=== PATIENT | female | born 1960 | race Caucasian/White ===

== ENCOUNTER 2018-06-04 12:26 | Inpatient (IN) | payer BC ==
--- NOTE | 2018-06-04 13:05 | ED ---
Abdominal Pain/Female - HPI Summary HPI Summary: This patient is a 57 year old F presenting to [facility] accompanied by her with a chief complaint of intermittent abd pain since 3 days ago. The patient reports that the pain radiated to her back 2 days ago. The patient reports that the pain worsened this morning. Patient was seen at [facility] this morning and received a CT scan with dx SBO and internal hernia. Staff at [facility] consulted Dr. Lantigua, surgeon, who accepted the patient. The patient rates the pain 3/10 in severity. Symptoms aggravated by nothing. Symptoms alleviated by nothing. Patient denies N/V or fever. Patient has hx of kidney stones but notes her symptoms were not like this previously. The patient has been taking ibuprofen for the pain. Patient notes that she took Tums 1 day ago but it did not alleviate her symptoms. - History of Current Complaint Chief Complaint: EDAbdPain Stated Complaint: ABD, BACK PAIN PER PT Hx Obtained From: Patient Onset/Duration: Gradual Onset, Lasting Days - 3, Still Present, Worse Since - this morning Timing: Intermittent Episode Lasting Severity Initially: Mild Severity Currently: Mild Pain Intensity: 5 Pain Scale Used: 0-10 Numeric Location: Diffuse Radiates: Yes Radiates to: Back Aggravating Factor(s): Nothing Alleviating Factor(s): Nothing Associated Signs and Symptoms: Positive: Back Pain. Negative: Fever, Nausea, Vomiting Allergies/Adverse Reactions: Allergies Allergy/AdvReac Type Severity Reaction Status Date / Time No Known Allergies Allergy Verified 06/04/18 17:02 Home Medications: Home Medications NK [No Home Medications Reported] 06/04/18 [History Confirmed 06/04/18] PMH/Surg Hx/FS Hx/Imm Hx History: Reports: Hx Kidney Stones Opthamlomology History: Denies: Hx Legally Blind EENT History: Denies: Hx Deafness - Surgical History Surgery Procedure, Year, and Place: none Infectious Disease History: No Infectious Disease History: Denies: Traveled Outside the [place] in Last 30 Days - Family History Known Family History: Negative: Diabetes Review of Systems Negative: Fever Negative: Epistaxis Positive: Abdominal Pain. Negative: Vomiting, Nausea Musculoskeletal: Other - back pain Negative: Rash All Other Systems Reviewed And Are Negative: Yes Physical Exam - Summary Physical Exam Summary: VITAL SIGNS: Reviewed. GENERAL: Patient is a well-developed and nourished female who is lying comfortable in the stretcher. Patient is not in any acute respiratory distress. Acute distress secondary to pain. HEAD AND FACE: Normocephalic and atraumatic. EYES: PERRLA, EOMI x 2, No injected conjunctiva. EARS: Hearing grossly intact. Ear canals and tympanic membranes are WNL. MOUTH: Oropharynx within normal limits. NECK: Supple, trachea is midline, no adenopathy, no JVD. CHEST: Symmetric, no tenderness at palpation LUNGS: Clear to auscultation bilaterally. No wheezing or crackles. CVS: RRR, S1 and S2 present, no murmurs or gallops appreciated. ABDOMEN: Soft, tenderness and guarding in lower abd. No signs of distention. Positive bowel sounds. No rebound and no masses palpated. No abdominal bruit or pulsations. EXTREMITIES: FROM in all major joints, no edema, no cyanosis or clubbing. NEURO: Alert and oriented x 3. No acute neurological deficits. Speech is normal. SKIN: Dry and warm Triage Information Reviewed: Yes Vital Signs On Initial Exam: Initial Vitals Temp Pulse Resp BP Pulse Ox 98.5 F 75 12 126/82 98 06/04/18 12:31 06/04/18 12:31 06/04/18 12:31 06/04/18 12:31 06/04/18 12:31 Vital Signs Reviewed: Yes Diagnostics - Vital Signs Vital Signs Temp Pulse Resp BP Pulse Ox 06/04/18 12:31 98.5 F 75 12 126/82 98 - Laboratory Lab Statement: Any lab studies that have been ordered have been reviewed, and results considered in the medical decision making process. Abdominal Pain Fem Course/Dx - Course Course Of Treatment: This patient is a 57-year-old female who presents to the emergency department with a chief complaint of having lower abdominal pain. The patient was seen at [facility] where they found that the patient may have in the small bowel obstruction versus an incarcerated hernia. Therefore and they discussed case with and Dr. Lantigua from surgery and he accepted the patient to be transferred for a consult. In the ED the patient could is to have pain therefore the patient was given IV fluids, Zofran for nausea and vomiting and morphine for pain. I discussed the case with Victor Manuel Burger physician video library assistant from Dr. Lantigua and he will consult for this patient. Abdominopelvic CT performed at that [facility] shows a persistent mildly dilated small bowel loop with mesenteric induration and free fluid. Normal appearing small bowel loops both proximal and distal to this small bowel loop. Interval decrease in feculent material within the lumen of the abnormal bowel loop. Findings may be related to ischemic bowel, possibly from internal hernia. Victor Manuel Burger physician video library assistant working with Dr. Lantigua and Dr. Martin placed the orders for admission for possible incarcerated hernia with ischemic bowel versus small bowel obstruction. The patient continued to have pain therefore she was given another dose of morphine. The patient continues to be hemodynamically stable alert oriented 3. - Diagnoses Differential Diagnosis: Positive: Bowel Obstruction, Constipation, Diverticulitis Provider Diagnoses: Abdominal hernia, Ischemic bowel disease - Provider Notifications Discussed Care Of Patient With: Angelique Martin Time Discussed With Above Provider: 16:05 Instructed by Provider To: Other - Dr. Martin, surgery, agreed to admit patient Discharge - Sign-Out/Discharge Documenting (check all that apply): Patient Departure Patient Received Moderate/Deep Sedation with Procedure: No - Discharge Plan Condition: Stable Disposition: ADMITTED TO [facility] Referrals: Ashley Lipscomb PA [Primary Care Provider] - - Billing Disposition and Condition Condition: STABLE Disposition: Admitted to [facility] - Attestation Statements Document Initiated by Lori: Yes Documenting Scribe: Nelly Candelaria Provider For Whom Lori is Documenting (Include Credential): Tyler Roman MD Scribe Attestation: Nelly Parkinson, rashiibed for Tyler Roman MD on 06/04/18 at 1807. Scribe Documentation Reviewed: Yes Provider Attestation: The documentation as recorded by the rashiibNelly mosher accurately reflects the service I personally performed and the decisions made by , Tyler Roman MD Status of Scribe Document: Viewed
[2018-06-04] MEDS ORDERED: NS 0.9% 1000 ML** 1,000 ML IV ONE (13:09)
[2018-06-04] MEDS ORDERED: Ondansetron INJ* 2 MG/ML VIAL IV ONE (13:09)
[2018-06-04] MEDS ORDERED: Morphine 4 MG/ML VIAL (1 ml) 4 MG/ML VIAL IV PRN ×2 (13:09→16:04)
[2018-06-04] MEDS ORDERED: ceFAZolin VIAL(*) 2 GM in NS 0.9% 100 ML* 100 ML IVPB ONE (15:29)
[2018-06-04] MEDS ORDERED: Morphine 4 MG/ML VIAL (1 ml) 4 MG/ML VIAL IV ONE (15:57)
[2018-06-04] MEDS ORDERED: Ondansetron INJ* 2 MG/ML VIAL IV PRN ×2 (16:05→21:13)
[2018-06-04] MEDS ORDERED: Lactated Ringers 1000 ML Bag* 1,000 ML IV SCH (17:00)
[2018-06-04] MEDS ORDERED: Bupivacaine 0.25% SDV PF* 10 ML VIAL INJ ONE (17:28)
[2018-06-04] MEDS ORDERED: Midazolam* 1 MG/ML 5 ML VIAL (5 MG) ONE (17:32)
[2018-06-04] MEDS ORDERED: fentaNYL* 50 MCG/ML 2 ML VIAL (100 MCG VIAL) ONE ×2 (17:32→19:10)
--- NOTE | 2018-06-04 17:59 | HP ---
Amended report to enter cosigning physician. CC: Amandeep Lipscomb PA-C, Kai Dempsey * ADMISSION HISTORY AND PHYSICAL: DATE OF ADMISSION: 06/04/18 ATTENDING SURGEON: Dr. Angelique Martin* (dictated by AZUL Green). CHIEF COMPLAINT: Abdominal pain. HISTORY OF PRESENT ILLNESS: This is a generally healthy 57-year-old female who on Thursday of this week felt a "bellyache" in the abdomen just below the umbilicus. It was mild and she was able to go to work Thursday and felt better. Later in the day, she was experiencing some mid lower back pain, which improved with ibuprofen. , she has still had some persistent anterior abdominal pain, which did not change with position and was associated again with back pain. Later in the evening, she felt okay, and evening after eating dinner, she again felt return of the same abdominal pain. She tried some Tums with no relief. She went to bed, but was awakened at 12 o' clock midnight, at which time, she tried to eat some yogurt. She was able to get back to sleep between 2 and 4:30 a.m., but beginning at 4:30 a.m. again noted the same, though increasing abdominal pain located in the lower mid abdomen. She denies nausea, vomiting. She had a normal bowel movement yesterday. She has no symptoms. She has not had any prior abdominal surgeries. She does have a history of prior nephrolithiasis, status post ESWL. She has not had any previous similar symptoms. PAST MEDICAL HISTORY: Unremarkable for any chronic or active medical problems, nephrolithiasis as noted above. PAST SURGICAL HISTORY: Includes bilateral knee arthroscopies (most recent from October 2017), D and C, and hysteroscopy for fibroids. CURRENT MEDICATIONS: None. DRUG ALLERGIES: None. FAMILY HISTORY: Negative for anesthesia problems, bleeding or clotting disorders. SOCIAL HISTORY: She is . 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 I did not inquire regarding tobacco or alcohol use. REVIEW OF SYSTEMS: General: No recent constitutional symptoms or acute illnesses, other than described above in the HPI. HEENT: No problems reported. Cardiovascular: No chest pain, palpitations, history of heart murmur. Respiratory: No history of asthma, chronic cough, shortness of breath. GI: As above per HPI. She did undergo colonoscopy at age 52, which she states was a normal exam. : No dysuria, increased frequency or hematuria. 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 Endocrine: No diabetes or thyroid dysfunction. PHYSICAL EXAMINATION GENERAL: Well-nourished, well-developed female, in no acute distress. She appears mildly uncomfortable. VITAL SIGNS: Height 5 feet 3 inches, weight 144 pounds, temperature 98.5, blood pressure 142/74, pulse 71, respirations 16, room air saturation 95% to 98% . HEENT: Pupils are equal, round, and reactive. EOMs intact. No conjunctival pallor. Oropharynx: Mucous membranes dry. Teeth in good repair. No intraoral lesions. NECK: No lymphadenopathy, thyromegaly, or masses. LUNGS: Clear to auscultation. No rales or wheezes. HEART: Regular rate and rhythm. No murmur noted. BREASTS: Not examined. ABDOMEN: Flat, nondistended. Bowel sounds present, though hypoactive. Soft with central tenderness at and just below the umbilicus. No guarding or peritoneal signs. No palpable masses or organomegaly. No palpable groin hernia. EXTREMITIES: She has slight edema in the left lower extremity that she states has been chronic since her last left knee arthroscopy. No edema on the right. No calf tenderness. GENITALIA: Not done. RECTAL: Not done. BACK: No spinous process or CVA tenderness. NEUROLOGIC: Grossly intact. SKIN: Warm and dry. No suspicious rashes or lesions. DIAGNOSTIC STUDIES/LAB DATA: (From [facility]) white blood cell count 7000, hemoglobin 13.2, MCV is elevated. Chemistries were essentially normal other than mild elevation of alkaline phosphatase of 126. CT scan of the abdomen and pelvis initially without contrast and then with IV contrast was reviewed by Dr. Martin. There is apparently a segment of small bowel that is dilated with air fluid levels and concerning for possible closed loop obstruction and/or internal hernia. IMPRESSION: Possible closed loop obstruction. PLAN: Possible laparoscopy, possible laparotomy, possible small bowel resection pending examination by Dr. Martin and confirmation of findings and plan. DANIEL [place], [place] [id number]/[facility] #: [id number] [facility]NING HOSPITALOlivia
[2018-06-04] MEDS ORDERED: ceFAZolin 2 GM in NS PREMIX(*) 2 GM/100 ML BAG IVPB ONE (18:13)
--- NOTE | 2018-06-04 18:17 | PN ---
Progress Note - Progress Note Date of Service: 06/04/18 Note: Patient is a 57 yo F with no significant medical history, no history of abdominal surgery who presents with abdominal pain since Tues and a CT scan concerning for a possible internal hernia. Please see full dictated history and physical by Thor Burger. I spoke to patient and about the findings and the recommendation for undergoing a diagnostic laparoscopy, possible ex lap , possible bowel resection and possible ostomy and related procedures. They understand and wish to proceed. I explained risks include but are not limited to bleeding, infection, injury to nearby structures and possible anastomotic leak should a bowel resection be performed. They understand all these things and wish to proceed.
[2018-06-04] MEDS ORDERED: Rocuronium* 10 MG/ML VIAL ONE (18:34)
[2018-06-04] MEDS ORDERED: Propofol* 10 MG/ML 20 ML BTL ONE (18:43)
[2018-06-04] MEDS ORDERED: Ketorolac INJ* 30 MG/ML 1 ML VIAL ONE (18:43)
[2018-06-04] MEDS ORDERED: Ondansetron INJ* 2 MG/ML VIAL ONE (18:43)
[2018-06-04] MEDS ORDERED: DiMENhydriNATE IV* 50 MG/ML VIAL ONE (18:43)
[2018-06-04] MEDS ORDERED: Dexamethasone IV* 4 MG/ML 1 ML (4 MG) ONE (18:43)
[2018-06-04] MEDS ORDERED: HYDROmorphone INJ1* 1 MG/ML SYRINGE ONE ×2 (20:37→21:15)
[2018-06-04] MEDS ORDERED: Acetaminophen IV 1GM/100ML * 100 ML ONE (21:14)
[2018-06-04] MEDS ORDERED: DiMENhydriNATE IV* 50 MG/ML VIAL IV PUSH PRN (21:15)
[2018-06-04] MEDS ORDERED: Naloxone* 0.4 MG/ML 1 ML VIAL IV PRN (21:15)
[2018-06-04] MEDS ORDERED: Acetaminophen IV 1GM/100ML * 1,000 MG/100 ML VIAL IVPB ONE (21:15)
[2018-06-04] MEDS: HYDROmorphone INJ1* 1 MG/ML SYRINGE IV PRN ×5 (21:19→21:47)
[2018-06-04] MEDS: Lactated Ringers 1000 ML Bag* 1,000 ML IV SCH (23:23)
--- NOTE | 2018-06-05 02:17 | OP ---
DATE OF OPERATION: 06/04/18 - ROOM #331 DATE OF : 64 SERVICE: General Surgery. SURGEON: Angelique Martin MD ASSISTANTS: Dr. Yuri Meredith and Mayelin Blair NP. ANESTHESIOLOGIST: Dr. Payton. ANESTHESIA: General endotracheal anesthesia. PRE-OP DIAGNOSIS: Possible small bowel internal hernia. POST-OP DIAGNOSIS: Small bowel mass. OPERATIVE PROCEDURE: Diagnostic laparoscopy, small bowel resection. Assessment of small bowel. ESTIMATED BLOOD LOSS: Approximately 50 cc. INDICATIONS: Ms. Flores is a very pleasant and a healthy 57-year-old female who presented to the emergency room at [facility] with complaints of abdominal pain since Thursday. She said that the patient was intermittent, had been briefly improving, and then got worse on Thursday. Therefore, she presented to the emergency room. She denied having any nausea or vomiting. She was having flatus and normal bowel movements and she has never had any abdominal surgery. She had a CT scan done that showed fecaliths in the small bowel and a possible internal hernia. Given this unusual finding and her abdominal pain, informed consent was obtained for diagnostic laparoscopy, possible exploratory laparotomy , possible bowel resection, possible ostomy. She understood the risks, benefits , and alternatives of the procedure and she wished to proceed. DESCRIPTION OF PROCEDURE: The patient was brought back to the operating room and placed on operating table in supine position. Sequential compression devices were placed in the bilateral lower extremities for DVT prophylaxis. Antibiotics with Ancef was administered prior to incision. The patient underwent general endotracheal anesthesia. A Carlton catheter was placed. Her abdomen was prepped and draped in normal sterile fashion. Prior to beginning the procedure, a time-out was performed verifying the patient's name, MR number , and the procedure to be performed. Local anesthesia was infiltrated into the left upper quadrant at Brown's point. A small incision was made and a Veress needle was placed into the abdomen and a saline drop test confirmed that it was indeed in the abdomen. Once this was done, insufflation was obtained to 15 mmHg and then the abdomen was entered under direct visualization using 5-mm Visiport. Once the abdomen was entered, general inspection of the abdomen with a 5-30 laparoscope showed that there was no injury that had been made upon entry with the Veress or with the 5-mm trocar. Therefore, the Veress was removed. Next, under direct visualization, 2 additional 5-mm trocars were placed, one just to the left of the umbilicus and then one in the left lower quadrant. After this was done, the patient was placed head down and right side up and then the bowel was run from the terminal ileum proximally. Of note, general inspection of the abdomen also showed that there were no significant gross abnormalities notable and there was a small amount of turbid fluid in the pelvis that was suctioned. As the bowel was run, it was noted to be normal appearing and decompressed from the terminal ileum onwards until somewhere in the mid jejunum the bowel appeared to be more dilated and a small bowel mass was encountered. It appeared to be the size of the lumen of the bowel and then the the bowel was run more proximally to this and was noted to be dilated. No other significant abnormalities were noted. Therefore, the decision was then made to extract a piece of bowel and perform a bowel resection. Therefore, a small incision was made at the umbilicus and a large wound retractor was placed into the abdomen. The smaller segment with the mass had been clamped with a laparoscopic grasper and it was delivered into the open wound protector. Once this was done, it was examined and palpated. It felt to be fairly mobile. There were no palpable masses in the mesentery. Therefore, the decision was made to perform a small bowel resection. This was performed as a standard side- to-side functional anastomosis; however, when taking the common enterotomy with a CAMILO 80 mm linear cutting stapler, there was quite a bit of bleeding at the staple line. Therefore, the decision was made to redo this anastomosis. It was repeated again in a [id number] functional end-to-end anastomosis using a CAMILO 80 mm stapler and this time a new stapler was opened. There were still several areas of brisk bleeding at the common enterotomy anastomosis and the mucosa was inverted and examined and the areas where there was brisk bleeding were oversewn using 3-0 Vicryl and 3-0 silk sutures and then it was examined after several minutes and it appeared to be hemostatic. The common enterotomy was then closed using a TA green load stapler and then the staple line was oversewn using 3-0 silk sutures. The anastomosis was felt to be wide open and the mesenteric defect was closed using a running 3-0 Vicryl suture. At this point, the bowel was returned to the abdomen. The wound protector was removed and then the small incision that was made at the umbilicus was closed using a running #1 looped PDS x2. [place] were used to close the skin at the small excision site and the laparoscopic port sites were closed using interrupted 4-0 Monocryl sutures. Sterile dressing was then placed. The patient's Carlton catheter was removed. Her general endotracheal anesthesia was reversed and she was taken to the PACU in stable condition. At the end of the case, all counts were correct and I was present during the entirety of the case. [id number]/[facility] #: [id number] MTDD
[2018-06-05] MEDS ORDERED: Morphine 4 MG/ML VIAL (1 ml) 4 MG/ML VIAL IV PRN (06:01)
[2018-06-05] MEDS ORDERED: Morphine INJ* 2 MG/ML 1 ML SYRINGE (TWO MG - NEW SYRINGE VERSION) IV PRN (06:03)
[2018-06-05] MEDS: Morphine 4 MG/ML VIAL (1 ml) 4 MG/ML VIAL IV PRN ×3 (06:10→16:00)
[2018-06-05 06:55] LABS: ABS Basophils 0 10^3/ul (0-0.2); ABS Eosinophils 0 10^3/ul (0-0.6); ABS Lymphocytes 0.9 10^3/ul (1.0-4.8); ABS Monocytes 0.8 10^3/ul (0-0.8); ABS Neutrophils 10.3 10^3/ul (1.5-7.7); ABS Nucleated RBC 0 10^3/ul; Eosinophil % 0 %; Hematocrit 34 % (33-41); Hemoglobin 11.2 g/dL (12.0-16.0); Lymphocyte % 7.2 %; Mean Corpuscular HGB Conc 33 g/dL (31-36); Mean Corpuscular Hemoglobin 32 pg (27-31); Mean Corpuscular Volume 99 fL (80-97); Mean Platelet Volume 8.8 fL (7.4-10.4); Nucleated Red Blood Cells % 0; Platelet Count 235 10^3/uL (150-450); Red Blood Count 3.47 10^6 /uL (3.70-4.87); Red Cell Distribution Width 13 % (10.5-15)
[2018-06-05 06:59] LABS: Calcium 8.6 mg/dL (8.6-10.3); Potassium 4.1 mmol/L (3.5-5.0)
[2018-06-05 07:04] LABS: EGFR African American 105.1 (>60); EGFR Non-African American 86.9 (>60)
[2018-06-05] MEDS: Heparin VIAL(*) 5000 UNITS/ML VIAL (FIVE THOUSAND) SUBCUT SCH ×2 (09:29→21:53)
--- NOTE | 2018-06-05 09:45 | PN ---
Progress Note - Progress Note Date of Service: 06/05/18 Note: Surgery Progress Note S: Patient reports feeling well this morning. She says she feels much better than before surgery and that her abdominal pain is gone. She does though have soreness at the surgical site. She has no nausea or emesis. No flatus. She ambulated to the restroom and has had urine output. O: Vital Signs: Temp Pulse Resp BP Pulse Ox 98.2 F 71 16 121/60 100 06/05/18 07:09 06/05/18 07:09 06/05/18 09:28 06/05/18 07:09 06/05/18 07:09 Laboratory Results - last 24 hr 06/05/18 06/05/18 06:23 06:23 WBC 12.0 H RBC 3.47 L Hgb 11.2 L Hct 34 MCV 99 H MCH 32 H MCHC 33 RDW 13 Plt Count 235 MPV 8.8 Neut % (Auto) 86.1 Lymph % (Auto) 7.2 [place] % (Auto) 6.6 Eos % (Auto) 0 Baso % (Auto) 0.1 Absolute Neuts (auto) 10.3 H Absolute Lymphs (auto) 0.9 L Absolute Monos (auto) 0.8 Absolute Eos (auto) 0 Absolute Basos (auto) 0 Absolute Nucleated RBC 0 Nucleated RBC % 0 Sodium 137 Potassium 4.1 Chloride 108 Carbon Dioxide 20 L Anion Gap 9 BUN 14 Creatinine 0.70 Est GFR ( Amer) 105.1 Est GFR (Non-Af Amer) 86.9 BUN/Creatinine Ratio 20.0 Glucose 110 H Calcium 8.6 Intake & Output 06/04/18 06/05/18 06/05/18 22:59 06:59 14:59 Intake Total 3600 0 620 Output Total 400 400 200 Balance 3200 -400 420 Weight 144 lb 6.4 oz Intake: IV Fluids 3600 620 LR 2500 620 NS 100ML, Cefazolin 2G 100 Oral 0 Output: Urine 400 200 Carl[place] 300 Estimated Blood Loss 100 Physical exam: abdomen- soft, minimally tender, dressing at umbilicus as saturated and dressing changed, incision is otherwise clean, dry and intact. lap sites intact. A/P: 57 F with abdominal pain, CT concerning for an internal hernia who is POD 1 from diagnostic laparoscopy and small bowel resection for a small bowel mass. - NPO until passing flatus - Continue IVF - OOB and ambulate - IS - HSQ - Morphine PRN for pain
[2018-06-05] MEDS: Lactated Ringers 1000 ML Bag* 1,000 ML IV SCH (13:31)
[2018-06-06] MEDS: Lactated Ringers 1000 ML Bag* 1,000 ML IV SCH ×2 (02:21→21:18)
[2018-06-06 04:54] LABS: ABS Basophils 0.1 10^3/ul (0-0.2); ABS Eosinophils 0.1 10^3/ul (0-0.6); ABS Lymphocytes 1.7 10^3/ul (1.0-4.8); ABS Monocytes 0.9 10^3/ul (0-0.8); ABS Neutrophils 7.7 10^3/ul (1.5-7.7); ABS Nucleated RBC 0 10^3/ul; Eosinophil % 0.5 %; Hematocrit 33 % (33-41); Hemoglobin 10.9 g/dL (12.0-16.0); Lymphocyte % 16.5 %; Mean Corpuscular HGB Conc 33 g/dL (31-36); Mean Corpuscular Hemoglobin 32 pg (27-31); Mean Corpuscular Volume 98 fL (80-97); Mean Platelet Volume 8.4 fL (7.4-10.4); Nucleated Red Blood Cells % 0; Platelet Count 233 10^3/uL (150-450); Red Blood Count 3.36 10^6 /uL (3.70-4.87); Red Cell Distribution Width 13 % (10.5-15); White Blood Count 10.5 10^3/uL (3.5-10.8)
[2018-06-06 05:02] LABS: BUN/Creatinine Ratio 17.6 (8-20); Calcium 8.3 mg/dL (8.6-10.3); EGFR African American 108.7 (>60); EGFR Non-African American 89.8 (>60); Potassium 3.6 mmol/L (3.5-5.0)
[2018-06-06] MEDS: Heparin VIAL(*) 5000 UNITS/ML VIAL (FIVE THOUSAND) SUBCUT SCH ×2 (09:26→21:16)
--- NOTE | 2018-06-06 10:35 | PN ---
Progress Note - Progress Note Date of Service: 06/06/18 Note: POD#2 s/p SB Rsxn T99, VS ok Large UO No stool No N/V Pain control good Abd soft, sore, non-dist., few BS Impr: S/P SB rsxn Decrease IVF Start sips Await increased GI fxn Await path
[2018-06-06] MEDS: Morphine 4 MG/ML VIAL (1 ml) 4 MG/ML VIAL IV PRN (12:20)
[2018-06-07 06:40] LABS: ABS Basophils 0.1 10^3/ul (0-0.2); ABS Eosinophils 0.1 10^3/ul (0-0.6); ABS Lymphocytes 1.7 10^3/ul (1.0-4.8); ABS Monocytes 0.8 10^3/ul (0-0.8); ABS Neutrophils 5.9 10^3/ul (1.5-7.7); ABS Nucleated RBC 0 10^3/ul; Eosinophil % 1.6 %; Hematocrit 34 % (33-41); Hemoglobin 10.9 g/dL (12.0-16.0); Lymphocyte % 20.1 %; Mean Corpuscular HGB Conc 33 g/dL (31-36); Mean Corpuscular Hemoglobin 32 pg (27-31); Mean Corpuscular Volume 98 fL (80-97); Mean Platelet Volume 8.7 fL (7.4-10.4); Nucleated Red Blood Cells % 0; Platelet Count 251 10^3/uL (150-450); Red Blood Count 3.41 10^6 /uL (3.70-4.87); Red Cell Distribution Width 14 % (10.5-15); White Blood Count 8.6 10^3/uL (3.5-10.8)
[2018-06-07 07:00] LABS: BUN/Creatinine Ratio 17.2 (8-20); Calcium 8.5 mg/dL (8.6-10.3); EGFR African American 130.6 (>60); EGFR Non-African American 107.9 (>60); Potassium 3.6 mmol/L (3.5-5.0)
[2018-06-07] MEDS ORDERED: oxyCODONE/Acetamin 5/325 MG* TAB PO PRN (08:57)
--- NOTE | 2018-06-07 08:57 | PN ---
Progress Note - Progress Note Date of Service: 06/07/18 Note: Surgery Progress Note S: Patient reports doing well. She ambulated yesterday many times without difficulty. Tolerated sips of clears without nausea or emesis. Pain is well controlled. She last had morphine at noon yesterday and says abdomen is sore but still better than before surgery. She had flatus this morning at 8am. O: Vital Signs: Temp Pulse Resp BP Pulse Ox 99.4 F 88 16 134/70 95 06/07/18 03:27 06/07/18 03:27 06/07/18 07:32 06/07/18 03:27 06/07/18 03:27 Laboratory Last Values WBC 8.6 10^3/uL (3.5-10.8) 06/07/18 06:23 RBC 3.41 10^6 /uL (3.70-4.87) L 06/07/18 06:23 Hgb 10.9 g/dL (12.0-16.0) L 06/07/18 06:23 Hct 34 % (33-41) 06/07/18 06:23 MCV 98 fL (80-97) H 06/07/18 06:23 MCH 32 pg (27-31) H 06/07/18 06:23 MCHC 33 g/dL (31-36) 06/07/18 06:23 RDW 14 % (10.5-15) 06/07/18 06:23 Plt Count 251 10^3/uL (150-450) 06/07/18 06:23 MPV 8.7 fL (7.4-10.4) 06/07/18 06:23 Neut % (Auto) 68.3 % 06/07/18 06:23 Lymph % (Auto) 20.1 % 06/07/18 06:23 [place] % (Auto) 9.4 % 06/07/18 06:23 Eos % (Auto) 1.6 % 06/07/18 06:23 Baso % (Auto) 0.6 % 06/07/18 06:23 Absolute Neuts (auto) 5.9 10^3/ul (1.5-7.7) 06/07/18 06:23 Absolute Lymphs (auto) 1.7 10^3/ul (1.0-4.8) 06/07/18 06:23 Absolute Monos (auto) 0.8 10^3/ul (0-0.8) 06/07/18 06:23 Absolute Eos (auto) 0.1 10^3/ul (0-0.6) 06/07/18 06:23 Absolute Basos (auto) 0.1 10^3/ul (0-0.2) 06/07/18 06:23 Absolute Nucleated RBC 0 10^3/ul 06/07/18 06:23 Nucleated RBC % 0 06/07/18 06:23 Sodium 139 mmol/L (135-145) 06/07/18 06:23 Potassium 3.6 mmol/L (3.5-5.0) 06/07/18 06:23 Chloride 104 mmol/L (101-111) 06/07/18 06:23 Carbon Dioxide 24 mmol/L (22-32) 06/07/18 06:23 Anion Gap 11 mmol/L (2-11) 06/07/18 06:23 BUN 10 mg/dL (6-24) 06/07/18 06:23 Creatinine 0.58 mg/dL (0.51-0.95) 06/07/18 06:23 Est GFR ( Amer) 130.6 (>60) 06/07/18 06:23 Est GFR (Non-Af Amer) 107.9 (>60) 06/07/18 06:23 BUN/Creatinine Ratio 17.2 (8-20) 06/07/18 06:23 Glucose 70 mg/dL (70-100) 06/07/18 06:23 Calcium 8.5 mg/dL (8.6-10.3) L 06/07/18 06:23 Intake & Output 06/06/18 06/07/18 06/07/18 22:59 06:59 14:59 Intake Total 0 0 Output Total 700 700 500 Balance -700 -700 -500 Intake: Oral 0 0 Output: Urine 700 700 500 Other: # Bowel Movements 0 0 # Voids 0 Abdomen: soft, minimally distended, tender around umbilicus. Piotr in place and clean/dry/intact. Lap incisions clean and dry A/P: 57 F POD 3 from diagnostic laparoscopy and small bowel resection for a small bowel mass, doing well. - Advance diet to CLD today. If continuing to pass gas and has a bowel movement will advance to soft diet tomorrow. - I advised patient she could take percocet or tylenol PO for pain and should reserve IV morphine for severe pain - Continue OOB and ambulating - Continue IS - HSQ for ppx - Patient may shower today
[2018-06-07] MEDS: Heparin VIAL(*) 5000 UNITS/ML VIAL (FIVE THOUSAND) SUBCUT SCH ×2 (09:11→21:49)
[2018-06-07] MEDS: Acetaminophen TAB* 325 MG PO PRN ×2 (09:15→21:49)
[2018-06-07] MEDS: Lactated Ringers 1000 ML Bag* 1,000 ML IV SCH (21:56)
[2018-06-08 06:51] LABS: ABS Basophils 0 10^3/ul (0-0.2); ABS Eosinophils 0.2 10^3/ul (0-0.6); ABS Lymphocytes 1.7 10^3/ul (1.0-4.8); ABS Monocytes 0.5 10^3/ul (0-0.8); ABS Neutrophils 2.9 10^3/ul (1.5-7.7); ABS Nucleated RBC 0 10^3/ul; Eosinophil % 3.7 %; Hematocrit 30 % (33-41); Hemoglobin 10.3 g/dL (12.0-16.0); Lymphocyte % 31.8 %; Mean Corpuscular HGB Conc 34 g/dL (31-36); Mean Corpuscular Hemoglobin 33 pg (27-31); Mean Corpuscular Volume 97 fL (80-97); Mean Platelet Volume 8.5 fL (7.4-10.4); Nucleated Red Blood Cells % 0; Platelet Count 243 10^3/uL (150-450); Red Blood Count 3.11 10^6 /uL (3.70-4.87); Red Cell Distribution Width 13 % (10.5-15); White Blood Count 5.4 10^3/uL (3.5-10.8)
[2018-06-08 07:09] LABS: BUN/Creatinine Ratio 12.3 (8-20); Calcium 8.6 mg/dL (8.6-10.3); EGFR African American 133.2 (>60); EGFR Non-African American 110.1 (>60); Potassium 3.3 mmol/L (3.5-5.0)
[2018-06-08] MEDS: Heparin VIAL(*) 5000 UNITS/ML VIAL (FIVE THOUSAND) SUBCUT SCH ×2 (09:32→22:08)
--- NOTE | 2018-06-08 13:22 | PN ---
Progress Note - Progress Note Date of Service: 06/08/18 Note: Surgery progress note S: Patient reports doing well overnight and yesterday. She continues to have flatus. She has minimal abdominal pain and has only required Tylenol. She denies nausea or vomiting. She has been ambulating many times. She has regular urine output. No bowel movements yet. Objective: Vital Signs: Temp Pulse Resp BP Pulse Ox 98.4 F 88 17 112/47 97 06/08/18 11:20 06/08/18 11:20 06/08/18 11:20 06/08/18 11:20 06/08/18 11:20 Laboratory Last Values WBC 5.4 10^3/uL (3.5-10.8) 06/08/18 05:38 RBC 3.11 10^6 /uL (3.70-4.87) L 06/08/18 05:38 Hgb 10.3 g/dL (12.0-16.0) L 06/08/18 05:38 Hct 30 % (33-41) L 06/08/18 05:38 MCV 97 fL (80-97) 06/08/18 05:38 MCH 33 pg (27-31) H 06/08/18 05:38 MCHC 34 g/dL (31-36) 06/08/18 05:38 RDW 13 % (10.5-15) 06/08/18 05:38 Plt Count 243 10^3/uL (150-450) 06/08/18 05:38 MPV 8.5 fL (7.4-10.4) 06/08/18 05:38 Neut % (Auto) 54.6 % 06/08/18 05:38 Lymph % (Auto) 31.8 % 06/08/18 05:38 Humphreys % (Auto) 9.2 % 06/08/18 05:38 Eos % (Auto) 3.7 % 06/08/18 05:38 Baso % (Auto) 0.7 % 06/08/18 05:38 Absolute Neuts (auto) 2.9 10^3/ul (1.5-7.7) 06/08/18 05:38 Absolute Lymphs (auto) 1.7 10^3/ul (1.0-4.8) 06/08/18 05:38 Absolute Monos (auto) 0.5 10^3/ul (0-0.8) 06/08/18 05:38 Absolute Eos (auto) 0.2 10^3/ul (0-0.6) 06/08/18 05:38 Absolute Basos (auto) 0 10^3/ul (0-0.2) 06/08/18 05:38 Absolute Nucleated RBC 0 10^3/ul 06/08/18 05:38 Nucleated RBC % 0 06/08/18 05:38 Sodium 143 mmol/L (135-145) 06/08/18 05:38 Potassium 3.3 mmol/L (3.5-5.0) L 06/08/18 05:38 Chloride 108 mmol/L (101-111) 06/08/18 05:38 Carbon Dioxide 26 mmol/L (22-32) 06/08/18 05:38 Anion Gap 9 mmol/L (2-11) 06/08/18 05:38 BUN 7 mg/dL (6-24) 06/08/18 05:38 Creatinine 0.57 mg/dL (0.51-0.95) 06/08/18 05:38 Est GFR ( Amer) 133.2 (>60) 06/08/18 05:38 Est GFR (Non-Af Amer) 110.1 (>60) 06/08/18 05:38 BUN/Creatinine Ratio 12.3 (8-20) 06/08/18 05:38 Glucose 91 mg/dL (70-100) 06/08/18 05:38 Calcium 8.6 mg/dL (8.6-10.3) 06/08/18 05:38 Intake & Output 06/07/18 06/08/18 06/08/18 22:59 06:59 14:59 Intake Total 1310 100 100 Output Total 6916 141 0231 Balance 40 -200 -1100 Intake: IV Fluids 990 LR 990 Oral 320 100 100 Output: Urine 5750 559 1315 Other: # Bowel Movements 0 Physical exam Abdomen: soft, minimally distended, incisions clean, dry and intact. [place] in place. Lap incisions are closed and intact next Assessment and plan: Patient is a 57-year-old female who is postop day 4 from a diagnostic laparoscopy and small bowel resection for small bowel mass. She is doing well. She is having flatus and is tolerating a clear liquid diet. - Advance to full liquids today. We will await bowel movement before advancing diet to regular - Continue out of bed and ambulation - Will Hep-Lock IV and discontinue labs - Continue Tylenol as needed for pain
[2018-06-09] MEDS: Heparin VIAL(*) 5000 UNITS/ML VIAL (FIVE THOUSAND) SUBCUT SCH (08:35)
--- NOTE | 2018-06-09 11:27 | PN ---
Progress Note - Progress Note Date of Service: 06/09/18 Note: S: POD #5. Had small loose BM; continues to pass flatus. Melissa'd soft diet this a.m. Denies pain. Dr. Martin also in to see patient. O: Vital Signs - 8 hr 06/09/18 08:40 Respiratory 16 Rate Intake and Output Last 24 Hours 06/07/18 06/08/18 06/09/18 06/10/18 06:59 06:59 06:59 06:59 Intake Total 0 2060 1230 100 Output Total 2800 3170 3200 400 Balance -2800 -1110 -1970 -300 Intake: IV Fluids 990 LR 990 Oral 0 1070 1230 100 Output: Urine 2800 3170 3200 400 Other: # Bowel Movements 0 0 1 Estimated Stool Amount Medium # Voids 0 Gen: appears comfortable, sitting up in bed Heart: reg Lungs: clear Abd: incisions ok; +BS; soft; min incisional tenderness. A: s/p lap assisted SB rsxn for SBO (path showed fecalith), improved P: home today; instructions reviewed; f/u next wk for staple removal
[2018-06-09 12:25] VITALS: BP 119/59
--- NOTE | 2018-06-09 16:54 | DS ---
DISCHARGE SUMMARY: DATE OF ADMISSION: 06/04/18 DATE OF DISCHARGE: 06/09/18 SERVICE: General Surgery. ATTENDING SURGEON: Angelique Martin MD ADMISSION DIAGNOSIS: Small bowel obstruction. DISCHARGE DIAGNOSES: Small bowel obstruction and small bowel mass. OPERATION: Diagnostic laparoscopy and small bowel resection. HOSPITAL COURSE: Ms. Flores is a very pleasant 57-year-old female who had presented to the emergency room on 06/04/18 with complaints of having intermittent lower midabdominal pain. She was seen at [facility] initially where they had performed a CT scan that showed a fecalized loop of small bowel. However, the patient did not have any surgical history before. She was therefore transferred to [facility] for surgical consultation. Given her clinical exam as well as the imaging of CT scan, she was taken to the operating room for diagnostic laparoscopy to identify the source of her fecalized loop of bowel, which was concerning for either internal hernia or some sort of a small bowel mass. She underwent a diagnostic laparoscopy, which revealed a small bowel mass at the midjejunum and a small bowel resection of this mass was performed. Final pathology showed this was a large stool ball. The patient's hospital course was uneventful. By the day of discharge on postoperative day 5, she was tolerating a soft diet. She was ambulating independently. She was not requiring any pain medications. She was having flatus and having small bowel movements and all her vital signs were stable. Given this, she was determined to be an appropriate case for discharge. PHYSICAL EXAMINATION: On discharge, vital signs, temperature was 99, pulse 73, respiratory rate is 16, O2 sat 95% on room air. Blood pressure is 126/63. General: She is a well-appearing woman, sitting in bed and standing up very easily, in no apparent distress. Abdomen is soft, minimally tender, nondistended. The incisions are clean, dry and intact. Her midline bailey are also intact. LABS: None. MEDICATIONS FOR DISCHARGE: None. The patient declined Percocet. DISCHARGE INSTRUCTIONS: The patient was told to return to the emergency room for fevers, chills, nausea, vomiting, worsening abdominal pain. She will return to the office next week to have her bailey removed. DISPOSITION: Home. CONDITION: Good. [id number]/[facility] #: [id number] [facility]
== END 2018-06-09 13:30 | disposition home or self-care (01) | DRG 223 ==
LOC: ED 12:26 → OR 19:50 → SSU 22:50
PROVIDERS: ADMIT Surgery; ATTEND Surgery
PROC: 0DBA4ZZ Excision of Jejunum, Percutaneous Endoscopic Approach (ICD-10-PCS; principal; 2018-06-04 16:45)
DX: K56.609 Unspecified intestinal obstruction, unspecified as to partial versus complete obstruction (principal); K56.41 Fecal impaction; Z87.442 Personal history of urinary calculi
CPT/HCPCS: 36415; 80048; 85025; 88307; 99283; A9270-GY; J0690; J1100; J1170; J1240; J1644; J1885; J2250; J2270; J2405; J2704; J3010; J3490